=== PATIENT | female | born 1945 | race Caucasian/White ===

== ENCOUNTER → 2016-07-10 | Outpatient (CLI) | payer MEDICARE, BC ==
[~2016-07-10] MED LIST: REGADENOSON 0.4 MG/5 ML SYRINGE ONE
== END | disposition home or self-care (01) ==
LOC: CFH 08:30
PROVIDERS: ATTEND Internal Medicine
DX: I44.7 Left bundle-branch block, unspecified (principal)
CPT/HCPCS: 78452; 93017; A9502; J2785

== ENCOUNTER → 2017-07-22 | Outpatient (CLI) | payer MEDICARE, BC | LOC: RAD 11:19 | PROVIDERS: ATTEND Internal Medicine | DX: R10.32 Left lower quadrant pain (principal); R10.2 Pelvic and perineal pain | CPT/HCPCS: 74176; 76830 ==

== ENCOUNTER 2018-07-20 13:35 | Outpatient (CLI) | payer MEDICARE, BC ==
[2018-07-20] MEDS ORDERED: LIDOCAINE-MPF 1%, 5ML ONE (14:01)
== END 2018-07-20 23:59 | disposition home or self-care (01) ==
LOC: RAD 13:35
PROVIDERS: ATTEND Internal Medicine
DX: E04.1 Nontoxic single thyroid nodule (principal)
CPT/HCPCS: 10005; 88173

== ENCOUNTER → 2018-09-28 | Outpatient (CLI) | payer MEDICARE, BC | END | disposition home or self-care (01) | LOC: CFH 13:16 | PROVIDERS: ATTEND Nurse Practitioner Family | DX: I67.82 Cerebral ischemia (principal); M47.812 Spondylosis without myelopathy or radiculopathy, cervical region; M48.02 Spinal stenosis, cervical region; G45.9 Transient cerebral ischemic attack, unspecified; G31.9 Degenerative disease of nervous system, unspecified | CPT/HCPCS: 70544; 70551; 72141 ==

== ENCOUNTER → 2020-03-26 | Outpatient (CLI) | payer MEDICARE, BC ==
[~2020-03-26] MED LIST changes: +CALC-76 PO; +CHOL10003 PO; +CITA20TA6 PO; +EZET10TA70 PO; +MELO7.5T31 PO; -REGADENOSON 0.4 MG/5 ML SYRINGE ONE; +VIT1TABL32 PO
[2020-03-26 15:58] LABS: BASOPHILS % (AUTO) 1 % (0-1); EOSINOPHILS % (AUTO) 2 % (1-7); LYMPHOCYTES % (AUTO) 24 % (22-44); MEAN CORPUSCULAR HEMOGLOBIN 27.7 pg (27.0-34.8); MEAN PLATELET VOLUME 9.3 fL (7.4-10.4); MONOCYTES % (AUTO) 8 % (2-9); NEUTROPHILS % (AUTO) 66 % (42-75); PLATELET COUNT 384 x10^3/uL (130-400); RED BLOOD COUNT 4.23 x10^6/uL (3.82-5.3); RED CELL DISTRIBUTION WIDTH 16.4 % (9.6-15.2)
[2020-03-26 16:00] LABS: ANION GAP 4 mmol/L (5-15); CALCIUM 9.1 mg/dL (8.5-10.1); CHLORIDE 110 mmol/L (98-107); CREATININE 0.94 mg/dL (0.55-1.02)
[2020-03-26 16:08] LABS: MD NO
[2020-03-26 16:21] LABS: INTERNATIONAL NORMALIZED RATIO 0.99 (0.93-1.1); PROTHROMBIN TIME 10.5 Seconds (9.6-11.5)
== END | disposition home or self-care (01) ==
LOC: STAR 13:40
PROVIDERS: ATTEND Orthopaedic Surgery
DX: Z01.810 Encounter for preprocedural cardiovascular examination (principal); Z01.818 Encounter for other preprocedural examination; M25.561 Pain in right knee; M17.11 Unilateral primary osteoarthritis, right knee; I44.7 Left bundle-branch block, unspecified; Z79.01 Long term (current) use of anticoagulants; Z20.828 Contact with and (suspected) exposure to other viral communicable diseases
CPT/HCPCS: 80048; 83036; 85025; 85610; 85730; 87081; 87635; 87806; 93005; G0475

== ENCOUNTER 2020-04-01 07:33 | Observation (INO) | payer MEDICARE, BC ==
[~2020-04-01] VITALS: Ht 154.9 cm; Wt 75.5 kg
[~2020-04-01 07:33] MED LIST changes: +EPINEPHRINE 1 MG/ML, 1ML ONE; +KETOROLAC 60 MG/2 ML ONE; +ROPIvacaine/PF 0.2%, 20 ML ONE; +SODIUM CHLORIDE 0.9% 0 ML ONE; +TRANEXAMIC ACID 100 MG/ML, 10ML ONE
[2020-04-01] MEDS ORDERED: MIDAZOLAM 1 MG/ML, 2ML ONE (07:38)
[2020-04-01] MEDS ORDERED: FENTANYL PF 250 MCG/5ML ONE (07:38)
[2020-04-01] MEDS ORDERED: CHLORHEXIDINE 15 ML UDC MM ONE (08:00)
[2020-04-01] MEDS ORDERED: PROMETHAZINE 25 MG/ML, 1ML IVPush PRN (08:00)
[2020-04-01] MEDS ORDERED: hydrALAzine 20 MG/ML, 1ML IV PRN (08:00)
[2020-04-01] MEDS ORDERED: LABETALOL 5MG/ML, 20ML IV PRN (08:00)
[2020-04-01] MEDS ORDERED: DIAZEPAM 5 MG/ML, 2ML IVPush PRN (08:00)
[2020-04-01] MEDS ORDERED: FENTANYL PF 100 MCG/2ML IV PRN (08:00)
[2020-04-01] MEDS ORDERED: DIPHENHYDRAMINE 50 MG/ML, 1ML IVPush PRN ×2 (08:00→09:30)
[2020-04-01] MEDS ORDERED: HYDROmorphone 1 MG/ML, 1ML INJ IVPush PRN ×2 (08:00→09:30)
[2020-04-01] MEDS ORDERED: ACETAMINOPHEN 500 MG TABLET PO ONE (08:00)
[2020-04-01] MEDS ORDERED: ONDANSETRON 2MG/ML, 2ML IVPush PRN ×2 (08:00→09:30)
[2020-04-01] MEDS ORDERED: LACTATED RINGERS 1,000 ML IV SCH (08:00)
[2020-04-01] MEDS ORDERED: GABAPENTIN 300 MG CAPSULE PO ONE (08:00)
[2020-04-01] MEDS ORDERED: MEPERIDINE/PF 25MG/0.5ML IVPush PRN (08:00)
[2020-04-01] MEDS ORDERED: OXYcodone 5 MG/5 ML ORAL.SOL UDC PO PRN (08:00)
[2020-04-01 08:01] VITALS: BP 128/70
[2020-04-01] MEDS ORDERED: VANCOMYCIN 1,000 MG ONE (08:54)
[2020-04-01] MEDS ORDERED: CEFAZOLIN 1,000 MG ONE (09:29)
[2020-04-01] MEDS ORDERED: DEXAMETHASONE 4 MG/ML, 1ML ONE (09:29)
[2020-04-01] MEDS ORDERED: SUCCINYLCHOLINE 20 MG/ML, 10ML ONE (09:29)
[2020-04-01] MEDS ORDERED: PROPOFOL 10 MG/ML, 20ML ONE (09:29)
[2020-04-01] MEDS ORDERED: KETOROLAC 30 MG/1 ML ONE (09:29)
[2020-04-01] MEDS ORDERED: ONDANSETRON 2MG/ML, 2ML ONE ×2 (09:29→10:59)
[2020-04-01] MEDS ORDERED: DEXAMETHASONE 4 MG/ML, 1ML IVPush SCH (09:30)
[2020-04-01] MEDS ORDERED: ONDANSETRON 4 MG TABLET PO PRN (09:30)
[2020-04-01] MEDS ORDERED: METOCLOPRAMIDE 5 MG/ML, 2ML IVPush PRN (09:30)
[2020-04-01] MEDS ORDERED: MAGNESIUM HYDROXIDE 8%, 30ML UDC PO PRN (09:30)
[2020-04-01] MEDS ORDERED: DIPHENHYDRAMINE 50 MG CAPSULE PO PRN (09:30)
[2020-04-01] MEDS ORDERED: PROMETHAZINE 25 MG/ML, 1ML IM PRN (09:30)
[2020-04-01] MEDS ORDERED: PSYLLIUM PACKET PO PRN (09:30)
[2020-04-01] MEDS ORDERED: OXYcodone IR 5MG TABLET PO PRN (09:30)
[2020-04-01] MEDS ORDERED: SENNA/DOCUSATE TABLET PO PRN (09:30)
[2020-04-01] MEDS ORDERED: TRANEXAMIC ACID 1,000 MG in SODIUM CHLORIDE 0.9% 100 ML IVPB ONE (09:30)
[2020-04-01] MEDS ORDERED: ACETAMINOPHEN 650 MG/20.3 ML UDC PO PRN (09:30)
[2020-04-01] MEDS ORDERED: BISACODYL 10 MG SUPP PR PRN (09:30)
[2020-04-01] MEDS ORDERED: POLYETHYLENE GLYCOL 17 GM PACKET PO PRN (09:30)
[2020-04-01] MEDS ORDERED: ALUMINUM/MAG/SIMETHICONE 30 ML UDC PO PRN (09:30)
[2020-04-01] MEDS ORDERED: FENTANYL PF 100 MCG/2ML ONE (10:59)
[2020-04-01] MEDS ORDERED: OXYcodone 5 MG/5 ML ORAL.SOL UDC ONE (11:00)
[2020-04-01] MEDS ORDERED: PROMETHAZINE 25 MG/ML, 1ML ONE (11:09)
[2020-04-01] MEDS ORDERED: LABETALOL 5MG/ML, 20ML ONE (11:57)
[2020-04-01] MEDS: KETOROLAC 30 MG/1 ML IV SCH ×2 (17:00→20:04)
[2020-04-01] MEDS: POTASSIUM CHLORIDE 20 MEQ in D5%-0.45% NACL 1,000 ML IV SCH (17:15)
[2020-04-01] MEDS: CEFAZOLIN PMX 1GM/50ML 50 ML IVPB SCH (17:17)
[2020-04-01] MEDS: ASPIRIN 81 MG TABLET EC PO SCH (17:26)
[2020-04-01 19:10] VITALS: BP 92/55
[2020-04-01] MEDS: DOCUSATE 100 MG CAPSULE PO SCH (20:04)
[2020-04-02 00:40] VITALS: BP 91/60
[2020-04-02] MEDS: CEFAZOLIN PMX 1GM/50ML 50 ML IVPB SCH (00:45)
[2020-04-02] MEDS: POTASSIUM CHLORIDE 20 MEQ in D5%-0.45% NACL 1,000 ML IV SCH (03:06)
[2020-04-02] MEDS: KETOROLAC 30 MG/1 ML IV SCH (04:35)
[2020-04-02 04:38] VITALS: BP 105/63
[2020-04-02] MEDS ORDERED: DEXAMETHASONE 4 MG/ML, 1ML IVPush ONE (06:00)
[2020-04-02] MEDS: ASPIRIN 81 MG TABLET EC PO SCH (06:11)
[2020-04-02 06:45] VITALS: BP 92/58
[2020-04-02] MEDS ORDERED: MELO7.5T31 PO (08:17)
[2020-04-02] MEDS ORDERED: MINERALS HOMEMEDPO SCH (09:00)
[2020-04-02] MEDS ORDERED: VIT A C HOMEMEDPO SCH (09:00)
[2020-04-02] MEDS ORDERED: TAMSULOSIN 0.4 MG CAP.ER.24H PO SCH (09:00)
[2020-04-02] MEDS ORDERED: CITALOPRAM 20 MG TABLET PO SCH (09:00)
[2020-04-02] MEDS ORDERED: LUTEIN HOMEMEDPO SCH (09:00)
[2020-04-02] MEDS ORDERED: [UNRECOGNIZED DRUG - OTHER] HOMEMEDPO SCH (09:00)
[2020-04-02] MEDS ORDERED: EZETIMIBE 10 MG TABLET PO SCH (09:00)
[2020-04-02] MEDS: DOCUSATE 100 MG CAPSULE PO SCH (09:04)
[2020-04-02 12:13] VITALS: BP 114/69
== END 2020-04-02 13:18 | disposition home or self-care (01) ==
LOC: OUT 07:33 → ORIP 09:27 → 4NE 16:15 → DCLOUNGE 04-02 13:08
PROVIDERS: ADMIT Orthopaedic Surgery; ATTEND Orthopaedic Surgery
DX: M17.11 Unilateral primary osteoarthritis, right knee (principal); M71.21 Synovial cyst of popliteal space [Baker], right knee; M81.0 Age-related osteoporosis without current pathological fracture; M06.9 Rheumatoid arthritis, unspecified; Z87.891 Personal history of nicotine dependence; Z79.899 Other long term (current) drug therapy
CPT/HCPCS: 27447; 36415; 73560; 85014; 85018; 96365; 96366; 96375; 96376; 97110; 97162; 97530; C1713; C1776; G0378; J0330; J0690; J1100; J1885; J2405; J2550; J2704; J3010; J3480; J7120; J0171; J2250; J2795; J3370